=== PATIENT | male | born 1940 ===

== ENCOUNTER 2018-01-04 08:15 | Inpatient (IN) | payer OTHER ==
[~2018-01-04] VITALS: Ht 160 cm; Wt 64.4 kg
[2018-01-04] MEDS ORDERED: AMBIEN10 MG PO (12:51)
[2018-01-12] MEDS ORDERED: IMODIUM A-D2 M2 PO (08:26)
[2018-01-12] MEDS ORDERED: HYOSCYAMINE0.125 M1 SL (08:26)
[2018-01-12] MEDS ORDERED: TRAM1TAB98 PO (08:26)
[2018-01-12] MEDS ORDERED: Intestinex CAP PO (08:27)
== END 2018-01-12 13:35 | disposition home or self-care (01) | DRG 329 ==
LOC: ADM 08:15 → EDSTATUS 08:15 → SURG 01-06 08:15 → O/R 01-06 09:25 → ICU 01-06 09:25 → SURG 01-06 09:25 → O/R 01-07 15:14 → ICU 01-07 15:35 → SURG 01-09 15:57
PROVIDERS: Surgery
PROC: 0DTP4ZZ Resection of Rectum, Percutaneous Endoscopic Approach (ICD-10-PCS; 2018-01-06)
PROC: 07TC4ZZ Resection of Pelvis Lymphatic, Percutaneous Endoscopic Approach (ICD-10-PCS; 2018-01-06)
PROC: 0D1B4Z4 Bypass Ileum to Cutaneous, Percutaneous Endoscopic Approach (ICD-10-PCS; 2018-01-06)
PROC: 0WJG4ZZ Inspection of Peritoneal Cavity, Percutaneous Endoscopic Approach (ICD-10-PCS; 2018-01-06)
PROC: 0DJD8ZZ Inspection of Lower Intestinal Tract, Via Natural or Artificial Opening Endoscopic (ICD-10-PCS; 2018-01-06)
PROC: 30233N1 Transfusion of Nonautologous Red Blood Cells into Peripheral Vein, Percutaneous Approach (ICD-10-PCS; 2018-01-06)
PROC: 0W3G0ZZ Control Bleeding in Peritoneal Cavity, Open Approach (ICD-10-PCS; 2018-01-06)
PROC: 0DTN4ZZ Resection of Sigmoid Colon, Percutaneous Endoscopic Approach (ICD-10-PCS; principal; 2018-01-06 12:30)
PROC: 0BH17EZ Insertion of Endotracheal Airway into Trachea, Via Natural or Artificial Opening (ICD-10-PCS; 2018-01-07)
PROC: 5A1935Z Respiratory Ventilation, Less than 24 Consecutive Hours (ICD-10-PCS; 2018-01-07)
PROC: 4A033R1 Measurement of Arterial Saturation, Peripheral, Percutaneous Approach (ICD-10-PCS; 2018-01-08)
DX: C20 Malignant neoplasm of rectum (principal); J95.821 Acute postprocedural respiratory failure; K91.840 Postprocedural hemorrhage of a digestive system organ or structure following a digestive system procedure; D62 Acute posthemorrhagic anemia; I95.89 Other hypotension; D69.59 Other secondary thrombocytopenia; D72.828 Other elevated white blood cell count; Y83.9 Surgical procedure, unspecified as the cause of abnormal reaction of the patient, or of later complication, without mention of misadventure at the time of the procedure; Y83.2 Surgical operation with anastomosis, bypass or graft as the cause of abnormal reaction of the patient, or of later complication, without mention of misadventure at the time of the procedure; Y92.238 Other place in hospital as the place of occurrence of the external cause

== ENCOUNTER 2018-01-21 13:21 | Inpatient (IN) | payer OTHER ==
[~2018-01-21] VITALS: Ht 160 cm; Wt 63.5 kg
[~2018-01-21 13:21] MED LIST: AMBIEN10 MG PO; HYOSCYAMINE0.125 M1 SL; IMODIUM A-D2 M2 PO; Intestinex CAP PO; TRAM1TAB98 PO
[2018-01-27] MEDS ORDERED: Intestinex CAP PO (12:25)
[2018-01-27] MEDS ORDERED: IMODIUM A-D2 MG PO (12:26)
[2018-01-27] MEDS ORDERED: ULTRACET PO (12:26)
== END 2018-01-27 15:48 | disposition home health service (06) | DRG 862 ==
LOC: ER 13:21 → SURG 16:39
PROC: BW25ZZZ Computerized Tomography (CT Scan) of Chest, Abdomen and Pelvis (ICD-10-PCS; 2018-01-21)
PROC: 0W9J30Z Drainage of Pelvic Cavity with Drainage Device, Percutaneous Approach (ICD-10-PCS; principal; 2018-01-25)
DX: T81.43XA Infection following a procedure, organ and space surgical site, initial encounter (principal); K65.1 Peritoneal abscess; N17.8 Other acute kidney failure; C20 Malignant neoplasm of rectum; E86.0 Dehydration; I10 Essential (primary) hypertension; Y83.2 Surgical operation with anastomosis, bypass or graft as the cause of abnormal reaction of the patient, or of later complication, without mention of misadventure at the time of the procedure; Y92.098 Other place in other non-institutional residence as the place of occurrence of the external cause; D64.89 Other specified anemias; Z93.2 Ileostomy status

== ENCOUNTER 2018-04-20 07:58 | Outpatient (CLI) | payer OTHER ==
[~2018-04-20 07:58] MED LIST changes: +IMODIUM A-D2 MG PO; +ULTRACET PO
== END 2018-04-20 08:35 | disposition home or self-care (01) ==
LOC: RX STUDY 07:58
DX: C20 Malignant neoplasm of rectum (principal); R19.5 Other fecal abnormalities; K92.1 Melena; R59.0 Localized enlarged lymph nodes

== ENCOUNTER 2018-05-12 11:15 | Inpatient (IN) | payer OTHER ==
[~2018-05-12] VITALS: Ht 162.6 cm; Wt 63.5 kg
[2018-05-20] MEDS ORDERED: INTESTINEX680 M1 PO (15:57)
[2018-05-22] MEDS ORDERED: OMEPRAZOLE20 M1 PO (12:50)
[2018-05-22] MEDS ORDERED: TYLENOL EXTRA500 MG PO (12:50)
[2018-05-22] MEDS ORDERED: INTESTINEX680 M1 PO (12:50)
== END 2018-05-22 13:21 | disposition home or self-care (01) | DRG 329 ==
LOC: EDBD 11:15 → O/R 05-19 05:40 → SURH 05-19 05:40 → EDBD 05-19 11:15 → SURH 05-19 11:15
PROVIDERS: ADMIT Surgery
PROC: 0DQB4ZZ Repair Ileum, Percutaneous Endoscopic Approach (ICD-10-PCS; principal; 2018-05-19 16:45)
DX: Z43.2 Encounter for attention to ileostomy (principal); J95.821 Acute postprocedural respiratory failure; C20 Malignant neoplasm of rectum; D62 Acute posthemorrhagic anemia; N99.0 Postprocedural (acute) (chronic) kidney failure